=== PATIENT | male | born 1960 | race African-American/Black ===

== ENCOUNTER 2022-02-22 09:07 | Emergency (ER) | payer MEDICAID, OTHER ==
[~2022-02-22] VITALS: Ht 188 cm; Wt 87.0 kg
[2022-02-22 11:12] LABS: BASOPHILS % 1.3 % (0.0-2.0); EOSINOPHILS % 1.9 % (0.0-5.0); HEMATOCRIT. 38.6 % (42.0-52.0); HEMOGLOBIN. 13.4 g/dL (14.0-18.0); LYMPHOCYTES % 29.9 % (20.0-50.0); MEAN CORPUSCULAR HEMOGLOBIN 38.8 pg (28.0-32.0); MEAN PLATELET VOLUME 8.8 fl (7.4-10.4); MONOCYTES % 11.3 % (2.0-8.0); NEUTROPHILS % 55.6 % (40.0-76.0); PLATELET 138 x1000/uL (130-400); RED BLOOD CELL COUNT 3.44 mill/uL (4.7-6.1); RED CELL DISTRIBUTION WIDTH 15.6 % (11.6-14.6)
[2022-02-22 11:20] LABS: CHLORIDE 103 mEq/L (98-107)
[2022-02-22 11:21] LABS: INR 1.3; PROTHROMBIN TIME 13.9 sec (9.6-11.0)
[2022-02-22 12:06] LABS: PLATELET ESTIMATE NORMAL
[2022-02-22] MEDS ORDERED: SODIUM BICARBONATE 4% (2.4MEQ) 5ML VIAL IV ONE (12:33)
[2022-02-22] MEDS ORDERED: LIDOCAINE HCL 1% 10 MG/ML 10ML VIAL ONE (12:33)
[2022-02-22] MEDS ORDERED: ALBUMIN HUMAN 12.5GM/50ML (25%) IV STA (14:07)
[2022-02-22] MEDS ORDERED: ALBUMIN HUMAN 25GM/100ML (25%) IV NR (14:30)
[2022-02-22 18:09] VITALS: BP 117/68
== END 2022-02-22 18:16 | disposition home or self-care (01) ==
LOC: ER 09:07
DX: R18.8 Other ascites (principal); D64.9 Anemia, unspecified; R74.01 Elevation of levels of liver transaminase levels; J45.909 Unspecified asthma, uncomplicated; K74.60 Unspecified cirrhosis of liver; Z20.822 Contact with and (suspected) exposure to COVID-19
CPT/HCPCS: 36415; 49083; 80053; 85025; 85610; 87426; 99285; C9803; J3490; P9047; Z7610